=== PATIENT | male | born 1965 | race American Indian/Alaskan Native ===

== ENCOUNTER 2016-07-24 23:48 | Emergency (ER) | payer OTHER, BC ==
[2016-07-25] MEDS ORDERED: MOTRIN ONE (01:33)
[2016-07-25] MEDS ORDERED: MOTRIN PO ONE (01:36)
[2016-07-25 01:38] VITALS: BP 131/81
--- NOTE | 2016-07-25 01:50 | Emergency Department Report ---
HPI - General Chief Complaint: Dental/Oral Time Seen by Provider: 07/25/16 01:49 - HPI HPI: Patient here complaining the left lower tooth pain since 6:00. Denies any fever or chills. Pain is 10 out of 10. Pain is located to his left lower back tooth. He said the tooth is cracked. He said he has appointment scheduled to see his dentist. ED Past Medical Hx - Past Medical History Previous Medical History?: Yes Hx Hypertension: Yes - Surgical History Past Surgical History?: No - Family History Family history: hypertension - Social History Smoking Status: Never Smoker Substance Use Type: None - Medications Home Medications: Home Medications Medication Instructions Recorded Confirmed Last Taken Type Cephalexin [Keflex] 500 mg PO BID #20 capsule 07/13/13 Unknown Rx Hydrochlorothiazide [Hctz] 07/13/13 07/13/13 Unknown History Hydrocodone Bit/Acetaminophen 1 each PO Q4H PRN #20 tablet 07/13/13 Unknown Rx [Lortab 5-500 Tablet] Lisinopril [Zestril TAB] 07/13/13 07/13/13 Unknown History amLODIPine [Norvasc] 07/13/13 07/13/13 Unknown History Acetaminophen/Codeine [Tylenol #3] 1 tab PO Q6H PRN #15 tab 07/25/16 Unknown Rx Amoxicillin [Amoxicillin TAB] 875 mg PO BID #20 tablet 07/25/16 Unknown Rx ED Review of Systems ROS: Stated complaint: TOOTH PAIN/ABCESS Other details as noted in HPI Comment: All other systems reviewed and negative Constitutional: denies: chills, fever Eyes: denies: eye discharge ENT: dental pain. denies: ear pain, throat pain, congestion Respiratory: no symptoms reported Cardiovascular: denies: chest pain, palpitations, edema, syncope Skin: denies: rash Neurological: denies: headache Physical Exam - Physical Exam Vital Signs: Vital Signs 07/25/16 07/25/16 00:01 01:37 Temperature 98.4 F 98.2 F Pulse Rate 84 77 Respiratory 20 20 Rate Blood Pressure 132/83 Blood Pressure 131/81 [Right] O2 Sat by Pulse 97 96 Oximetry General: This is a 51-year-old male well-nourished well-developed in no acute distress. Physical Exam: Head: Normocephalic atraumatic Mouth: Moist, no pharyngeal exudate or erythema. Uvula is midline and oral airway is patent. No gingival enlargement . dental tenderness and fractured noticed to to #17. No facial swelling. No peritonsillar abscesses. Neck: Supple, no C-spine tenderness, no tracheal deviation. Nontender to palpate. no adenopathy Ears: Bilateral TMs pearly bravo.bilateral EAC without any redness swelling or drainage Eyes: Bilateral pupils equal and reactive to light, bilateral EOM intact. Bilateral sclera and conjunctiva without injection. Normal accommodation Nose: Mucosa moist, normal mucosa ,maxillary and frontal sinus non-tender to palpate. Lungs: clear to auscultate bilaterally no rhonchi wheezes or rales. Normal work of breathing extremity; No CCE. +2 pulses. No neurovascular compromise Cardiovascular: S1-S2, regular rate rhythm. No murmurs. Skin: clean Dry and intact no rash no lesions Psych: Normal mood and behavior ED Course Vital Signs 07/25/16 07/25/16 00:01 01:37 Temperature 98.4 F 98.2 F Pulse Rate 84 77 Respiratory 20 20 Rate Blood Pressure 132/83 Blood Pressure 131/81 [Right] O2 Sat by Pulse 97 96 Oximetry - Reevaluation(s) Reevaluation #1: 07/25/16 02:42 Patient given Motrin 800 mg in emergency room for toothache ED Medical Decision Making - Medical Decision Making ED course: I discussed the patient that he will need to keep his appointment with his dentist because he has broken tooth #17 and will need to be repaired. Patient given Motrin 800 mg in emergency room to manage to take. Discharged home with prescriptions for amoxicillin and Tylenol 3. Critical care attestation.: If time is entered above; I have spent that time in minutes in the direct care of this critically ill patient, excluding procedure time. ED Disposition Clinical Impression: Toothache Tooth fracture Qualifiers: Encounter type: initial encounter Fracture type: closed Qualified Code(s): S02.5XXA - Fracture of tooth (traumatic), initial encounter for closed fracture Disposition: DISCHARGED TO HOME OR SELFCARE Is pt being admited?: No Does the pt Need Aspirin: No Condition: Stable Instructions: Toothache (ED) Prescriptions: Acetaminophen/Codeine [Tylenol #3] 1 tab PO Q6H PRN #15 tab PRN Reason: Toothache Amoxicillin [Amoxicillin TAB] 875 mg PO BID #20 tablet Referrals: Your, Dentist [Other] - 2-3 Days Forms: Work/School Release Form(ED)
== END 2016-07-25 02:53 | disposition home or self-care (01) ==
LOC: ED 23:48
DX: S02.5XXA Fracture of tooth (traumatic), initial encounter for closed fracture (principal); K08.89 Other specified disorders of teeth and supporting structures; I10 Essential (primary) hypertension; X58.XXXA Exposure to other specified factors, initial encounter; Y93.9 Activity, unspecified; Y99.9 Unspecified external cause status; Y92.9 Unspecified place or not applicable
CPT/HCPCS: 99282

== ENCOUNTER 2016-11-18 18:27 | Emergency (ER) | payer OTHER, BC ==
[2016-11-18 18:41] VITALS: BP 125/82
== END 2016-11-18 22:55 | disposition left against medical advice (07) ==
LOC: ED 18:27
DX: B55.1 Cutaneous leishmaniasis (principal); Z53.21 Procedure and treatment not carried out due to patient leaving prior to being seen by health care provider

== ENCOUNTER 2016-11-20 05:14 | Emergency (ER) | payer OTHER, BC ==
[2016-11-20] MEDS ORDERED: TORADOL IM ONE (08:56)
[2016-11-20] MEDS ORDERED: CLEOCIN IM ONE (08:56)
--- NOTE | 2016-11-20 09:32 | Emergency Department Report ---
ED Extremity Problem HPI - General Chief complaint: Animal Bite Stated complaint: RT LEG SPIDER BITE Time Seen by Provider: 11/20/16 08:32 Source: patient Mode of arrival: Ambulatory Limitations: No Limitations - History of Present Illness Initial comments: PT states he was working in his rental house over the weekend. PT believes he was bit by a spider. PT states he noticed bite on Saturday and went to ER on Saturday but left without treatment. PT states his pain persisted and on Saturday, he followed up with PCP. PT states his pain was treated and labs were done but he did not get any RXs. 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 PT states he has a hx of spider bite that needed to be drained and packed. PT states his TD vaccine is UTD Complaint: extremity pain Onset/Timin -: Gradual (worsening or pain ), days(s) Location: right, lower extremity History of Same: Yes Severity scale (0 -10): 8 Quality: sharp, constant Improves with: other (not having pressure on R post leg) Worsens with: palpation, other (sitting ) Associated Symptoms: rash. denies: chest pain, fever - Related Data Home Medications Medication Instructions Recorded Confirmed Last Taken Hydrochlorothiazide [Hctz] 07/13/13 07/13/13 Unknown Lisinopril [Zestril TAB] 07/13/13 07/13/13 Unknown amLODIPine [Norvasc] 07/13/13 07/13/13 Unknown Previous Rx's Medication Instructions Recorded Last Taken Type Acetaminophen/Codeine [Tylenol #3] 1 tab PO Q6H PRN #12 tab 11/20/16 Unknown Rx Clindamycin [Clindamycin CAP] 300 mg PO Q8H #30 cap 11/20/16 Unknown Rx Allergies Allergy/AdvReac Type Severity Reaction Status Date / Time No Known Allergies Allergy Unverified 07/13/13 09:39 ED Review of Systems ROS: Stated complaint: RT LEG SPIDER BITE Other details as noted in HPI Comment: All other systems reviewed and negative Constitutional: denies: chills, fever Gastrointestinal: denies: abdominal pain, nausea, vomiting Genitourinary: denies: testicular pain, testicular mass Musculoskeletal: as per HPI Skin: change in color ED Past Medical Hx - Past Medical History Hx Hypertension: Yes - Surgical History Past Surgical History?: No - Social History Smoking Status: Former Smoker Substance Use Type: None - Medications Home Medications: Home Medications Medication Instructions Recorded Confirmed Last Taken Type Hydrochlorothiazide [Hctz] 07/13/13 07/13/13 Unknown History Lisinopril [Zestril TAB] 07/13/13 07/13/13 Unknown History amLODIPine [Norvasc] 07/13/13 07/13/13 Unknown History Acetaminophen/Codeine [Tylenol #3] 1 tab PO Q6H PRN #12 tab 11/20/16 Unknown Rx Clindamycin [Clindamycin CAP] 300 mg PO Q8H #30 cap 11/20/16 Unknown Rx ED Physical Exam - General Limitations: No Limitations General appearance: alert, in no apparent distress - Head Head exam: Present: atraumatic, normocephalic, normal inspection - Eye Eye exam: Present: normal appearance. Absent: conjunctival injection - ENT ENT exam: Present: normal exam, normal external ear exam - Neck Neck exam: Present: normal inspection, full ROM - Respiratory Respiratory exam: Present: normal lung sounds bilaterally. Absent: respiratory distress - Cardiovascular Cardiovascular Exam: Present: regular rate, normal rhythm - GI/Abdominal GI/Abdominal exam: Present: soft. Absent: tenderness - Extremities Exam Extremities exam: Present: tenderness. Absent: calf tenderness - Expanded Lower Extremity Exam Right Hip exam: Present: full ROM. Absent: tenderness Upper Leg exam: Present: tenderness, swelling, erythema (R post thigh with firm abscess and surrounding cellulitis. cellulitis extends 2cms past abscess ) Knee exam: Present: normal inspection, full ROM Lower Leg exam: Present: normal inspection, full ROM. Absent: tenderness Neuro vascular tendon exam: Present: no vascular compromise Gait: Positive: observed and normal - Back Exam Back exam: Present: normal inspection, full ROM. Absent: tenderness, CVA tenderness (R), CVA tenderness (L) - Neurological Exam Neurological exam: Present: alert, oriented X3, normal gait - Psychiatric Psychiatric exam: Present: normal affect, normal mood - Skin Skin exam: Present: warm, dry, intact, erythema ED Course Vital Signs 11/20/16 11/20/16 05:39 09:48 Temperature 98.9 F Pulse Rate 79 81 Respiratory 18 19 Rate Blood Pressure 120/81 124/82 [Right] O2 Sat by Pulse 96 97 Oximetry - Reevaluation(s) Reevaluation #1: 11/20/16 09:35 PT aware of dx and plan of care. PT has no questions at this time. PT given verbal follow up instructions and strict return precautions - Pulse Oximetry Interpretation Digit-Finger Initial Pulse Oximetry Readin Actions Taken: none ED Medical Decision Making - Differential Diagnosis spider bite, abscess, cellulitis Critical Care Time: No Critical care attestation.: If time is entered above; I have spent that time in minutes in the direct care of this critically ill patient, excluding procedure time. ED Disposition Clinical Impression: Abscess or cellulitis of thigh Disposition: DISCHARGED TO HOME OR SELFCARE Is pt being admited?: No Does the pt Need Aspirin: No Condition: Stable Instructions: Cellulitis (ED), Abscess (ED) Additional Instructions: Warm compresses at least 4 times a day No driving or ETOH after taking Tylenol #3 for pain Return to ED or PCP office in 2 days for recheck IF the swollen area becomes soft, return to ED for re-evaluation and possible I and D of abscess IF any worsening, return to eD Prescriptions: Acetaminophen/Codeine [Tylenol #3] 1 tab PO Q6H PRN #12 tab PRN Reason: Pain , Severe (7-10) Clindamycin [Clindamycin CAP] 300 mg PO Q8H #30 cap Referrals: PRIMARY CAREMD [Primary Care Provider] - 3-5 Days BENEDICTO BEE MD [Staff Physician] - 3-5 Days Forms: Work/School Release Form(ED) Time of Disposition: 09:38
[2016-11-20 09:48] VITALS: BP 124/82
== END 2016-11-20 09:49 | disposition home or self-care (01) ==
LOC: ED 05:14
DX: L02.415 Cutaneous abscess of right lower limb (principal); I10 Essential (primary) hypertension; Z87.891 Personal history of nicotine dependence
CPT/HCPCS: 96372; 99282; J1885

== ENCOUNTER 2022-01-06 00:08 | Emergency (ER) | payer BC ==
[2022-01-06 02:22] VITALS: BP 142/85
== END 2022-01-07 09:50 | disposition left against medical advice (07) ==
LOC: ED 00:08
DX: S99.921A Unspecified injury of right foot, initial encounter (principal); Z53.21 Procedure and treatment not carried out due to patient leaving prior to being seen by health care provider; X58.XXXA Exposure to other specified factors, initial encounter; Y93.89 Activity, other specified; Y92.89 Other specified places as the place of occurrence of the external cause; Y99.8 Other external cause status